=== PATIENT | female | born 1940 | race Caucasian/White ===

== ENCOUNTER 2024-10-27 15:35 | Inpatient (IN) | payer OTHER, SELFPAY ==
[2024-10-27] VITALS (16 sets, daily range): BP systolic 150–198; BP diastolic 84–115; BMI 27.2
--- NOTE | 2024-10-27 11:49 | ED.GENMED ---
History of Present Illness
General
Chief Complaint: Weakness
Source: patient
Exam Limitations: none
Time Seen by Provider: 10/27/24 11:32
Nursing documentation reviewed up to this point in time: agreed with
History of Present Illness
History of Present Illness:
Very spry active 84 yo noted right arm weakness, ataxic gait, mild R perioral numbness 4 p.m yesterday after finishing her workout class. No PMHX, takes no meds.
Past History
Past History
ED Past Medical History: None
ED Past Surgical History: None
Social History
Tobacco: Non-smoker
Personal:
Living: with family
Review of Systems
Review of Systems
Allergies reviewed?: Yes
All Other Systems: ROS reviewed and negative except as documented in HPI and ROS
Constitutional: Denies fever or fatigue
Respiratory: Denies trouble breathing
Cardiac: Denies chest pain
ABD/GI: Denies abdominal pain, nausea, vomiting or diarrhea
: Denies dysuria, frequency or difficulty voiding
Musculoskeletal: Reports no symptoms
Skin: Reports no symptoms
Neurological: Reports other (mild right perioral numbness, right UE feels 'a little numb and heavy,' 'I can't walk straight')
Phy Exam
Physical Exam
Physical Exam:
GENERAL: No acute distress. A&Ox3.
CONSTITUTIONAL: Afebrile.
EYES: clear, conjunctivae normal
ENMT: moist mucus membranes, Pharynx nl
RESPIRATORY: Regular respirations, nonlabored, lungs clear.
CARDIOVASCULAR: Regular rate and rhythm, no murmurs, no rubs.
GI: Soft, nontender, normal BS
MUSCULOSKELETAL: Moves with ease. Well perfused.
SKIN: Warm, dry, pink
PSYCH: Normal mood and affect. Well kept, interactive and appropriate
NEUROLOGIC: Awake, alert and oriented. Strength equal throughout. Subjective right arm feels 'a little weak /heavy.' Mild ataxia w finger to nose, ataxic gait. Right-sided perioral numbness. no facial asymmetry
Scores
NIH Stroke Score
Level of Consciousness: 0 - Alert
LOC Questions: 0-Answers both correctly
LOC Commands: 0-Performs both correctly
Best Horizontal Gaze: 0-Normal
Visual Carson: 0=Normal, no visual loss
Facial Palsy: 1=Minor paralysis
Motor - Right Arm: 0=No drift 10 seconds
Motor - Left Arm: 0=No drift 10 seconds
Motor - Right Le-No drift 5 seconds
Motor - Left Le-No drift 5 seconds
Limb Ataxia: 1-Present in one limb (finger to nose right hand mildly ataxic)
Sensation: 1-Mild loss (right side upper and lower lip, right hand)
Best Language: 0-No aphasia
Dysarthria: 0-Normal
Extinction and Inattention: 0-No abnormality
NIH Total Score:: 3
Course
Orders/Labs/Results
Orders:
Orders
10/27/24 11:43
CT Head W/o Iv Contrast Urgent
Comment:
Reason For Exam: imbalance, right arm weak, right lip numb
10/27/24 11:45
CT Head & Neck Angio W/wo IV Urgent
Comment:
Reason For Exam: R side weakness
10/27/24 11:47
CT Brain Perfusion Urgent
Comment:
Reason For Exam: R side weakness
10/27/24 11:50
Cardiovascular Evaluation Urgent
Comment: ADD ON
Complete Blood Count/With Diff Urgent
Comprehensive Metabolic Panel Urgent
Glycohemoglobin (HgbA1c) Urgent
TSH Reflex To Free T4 Urgent
10/27/24 11:58
NEUROLOGY CONSULT Urgent
Consulting Provider: Justin Carlos
Was physician already notified: Yes
Reason for consult: poss CVA
10/27/24 12:04
PTT Urgent
Prothrombin Time Urgent
10/27/24 12:52
Add On- LAB Routine
Tests Added?: lipid panel, hgb A1C
10/27/24 13:01
MR Brain Without Contrast Routine
Comment:
Reason For Exam: right sided ataxia
Recent pill cam endoscopy?: No
10/27/24 13:12
Labetalol HCl [Trandate] 10 mg IV NOW STA
10/27/24 15:00
Aspirin Low Dose EC [Aspir Low (Enteric Coated)] 81 mg PO DAILY
Clopidogrel Bisulfate [Plavix] 75 mg PO DAILY
10/27/24 15:09
Admit/Transfer Patient As Directed
Co-Sign Provider:
Level of Care: Observation services
Assign to:: Telemetry
Physician / Group: Hospitalist
Diagnosis: CVA/TIA
Reason for Telemetry: CVA/TIA
Date to Stop Telemetry: 10/30/24
Time to Stop Telemetry: 11:00
Reason for Hospitalization: Right UE weakness
Expected length of stay greater than two midnights?: Yes
ELOS- Estimated Length of Stay in days: 2
I certify the patient meets the requirements for IP care: Yes
PRN Pain Medication Management As Directed
May give lesser potent ordered pain med per pt: Yes
preference::
Protocol:: Medication orders for pain may be administered in a
manner that supports deferring to patient preference
when the pt is:
- Requesting an ordered lesser potent pain medication.
Least to most potent pain medications are defined
as: acetaminophen < NSAID < tramadol < opioids
(morphine, oxycodone, hydromorphone).
- Requesting a lesser dose of the same medication IF
ORDERED.
- Requesting a less intrusive route of administration
if both routes are prescribed by the provider (PO <
IV).
08/19/25 15:12
Code Status As Directed
Resuscitation Status: Do not resuscitate
Reached after discussion with pt or family/Healthcare POA: Yes
10/27/24 15:13
DNR Bracelet Application ONCE
10/27/24 17:56
Acetaminophen [Tylenol/Feverall] 650 mg RECTAL Q4HPRN PRN
Acetaminophen [Tylenol] 650 mg PO Q4HPRN PRN
10/27/24 17:56
Case Management Consult ONCE
Case Management Consult: Discharge Planning
Comment: stroke/tia
DIETARY IP CONSULT Routine
Reason for Consult: stroke/TIA
NEUROLOGY CONSULT Urgent
Consulting Provider: Justin Carlos
Was physician already notified: Yes
Proposal Editor Urgent
Activity As Directed
Activity Level: As Tolerated
NIH Stroke Scale As Directed
Directions: Per protocol
Comment: every shift and with any change in condition or mental status
Neurological Checks As Directed
Frequency: q4h
Additional Instructions:: q4h x 24h upon admission to the floor, then qshift & with any change in condition
and mental status
Patient Education As Directed
Type: Stroke education packet
Comment: provide to patient and family
Pneumatic Compression Sleeves As Directed
Type: Knee high
Swallow Screening CVA/TIA ONLY As Directed
Comment: NPO until swallowing screening completed
If patient FAILS swallow screening:: NPO, Speech Therapy consult, Aspiration Precautions
If patient PASSES swallow screening, diet:: Cholesterol Lowering
Above diet order entered?: Yes- passed screening
Vital Signs As Directed
Frequency: Per unit guidelines
Ot Eval And Treat Routine
Pt Eval And Treat Routine
Activity Level: Out of Bed-Early Mobility
Speech Therapy Eval & Treat Routine
DX Deep Vein Thrombosis Video Routine
10/27/24 18:00
Atorvastatin [Lipitor] 40 mg PO QPM
10/28/24 06:00
Cardiovascular Evaluation IN AM
10/30/24 11:00
DC Protocol for Telemetry ONCE
Abnormal Lab Results
10/27/24 10/27/24
11:50 12:04
MCHC 32.8 L g/dL
(33.0-37.0)
Absolute Monos (auto) 0.7 H 10^3/uL
(0.1-0.6)
APTT 23.1 L Sec
(23.4-35.0)
Chloride 108 H mmol/L
(98-107)
BUN 25 H mg/dl
(7-17)
Creatinine 1.1 H mg/dL
(0.6-1.0)
Glucose 107 H mg/dl
(70-99)
Hemoglobin A1c 5.7 H %
(4.0-5.6)
Calcium 10.9 H mg/dl
(8.4-10.2)
Triglycerides 215 H mg/dl
(10-149)
Total Cholesterol 213 H mg/dl
(50-199)
VLDL Cholesterol, Calc 43 H mg/dl
(0-30)
10/27/24 11:50
10/27/24 11:50
Vital Signs
Initial and Last Documented VS:
Initial Vital Signs
Temp Pulse Resp BP Pulse Ox
99.2 F 88 18 169/111 98
10/27/24 11:16 10/27/24 11:16 10/27/24 11:16 10/27/24 11:16 10/27/24 11:16
Last Documented Vital Signs
Temp Pulse Resp BP Pulse Ox
97.8 F 77 18 169/97 96
10/27/24 19:46 10/27/24 19:46 10/27/24 19:46 10/27/24 19:46 10/27/24 19:46
MDM/Problems Addressed
MDM/Problems Addressed:
Very spry active 84 yo noted right arm weakness, ataxic gait, mild R perioral numbness 4 p.m yesterday after finishing her workout class. No PMHX, takes no meds.
Case discussed with Dr. Elliott
Stroke alert not called due to onset of symptoms. Immediately sent to CT scan. Labs pending.
11:[address] Carlos consulted.
12:30 Dr. Carlos in
1:00 p.m.
Text from Radiologist Dr. Green: Small focus of subtle diminished attenuation involving the posterior limb of left internal capsule. Nonspecific. Possible age indeterminate ischemic change/infarct.
No other significant acute intracranial abnormality noted.
No acute intracranial hemorrhage.
1:[address] Carlos request lowering patient's blood pressure by about 20%. Recent blood pressure 188/104 with a heart rate of 112. Labetalol 10 mg IV ordered. States it is probably stroke although the possibility of hypertensive encephalopathy is still
there. She needs to stay, she needs occupational therapy with her hand mobility reduced
Hospitalist notified of admission
*Pulse Oximetry
SaO2: 98
Oxygen Mode of Delivery: Room air
Patient hypoxic: not evaluated
*Critical Care Note
Total Time (30-74mins, 75-104mins- exclusive of procedures): Not Applicable
ED Attending Note
-
Portions of this chart may have been created with voice recognition software.� Occasional wrong word or��sound alike� substitutions may have occurred due to the inherent limitations of voice recognition software.
Discharge Plan
Departure
Patient Disposition: Admit
Date of Disposition: 10/27/24
Time of Disposition: 13:06
Admit to: Med/Surg
Presentation/result/management discussed w/ accepting MD/DO: Hospitalist
Condition: Fair
Discharge Problem:
Acute cerebrovascular accident (CVA)
Interventions
Interventions:
*Risk Screen - Suicide Last Done: 10/27/24 11:16
*General Assessment Last Done: 10/27/24 11:16
*Neglect/Abuse Screening Last Done: 10/27/24 11:16
*ED- Fall Risk Assessment Last Done: 10/27/24 11:16
*ED COVID-19 Vaccine History Last Done: 10/27/24 11:16
*Nursing Disposition Last Done: 10/27/24 17:54
ED- Cardiac Assessment Last Done: 10/27/24 12:12
ED- Neurological Assessment Last Done: 10/27/24 15:00
ED- Pulmonary Assessment Last Done: 10/27/24 12:12
Discharge Date and Time
Discharge Date/Time: 10/27/24 17:54
[2024-10-27 12:01] LABS: Hematocrit 46.9 % (37.0-47.0); Hemoglobin 15.4 g/dL (12.0-16.0); Mean Corp Hgb Conc. 32.8 g/dL (33.0-37.0); Mean Corpuscular Volume 90.4 fL (81.0-99.0); Nucleated Red Blood Cells % 0 %; Platelet Count 281 10^3/uL (130-400); Red Cell Dist. Width 13.5 % (11.5-14.5)
[2024-10-27 12:14] LABS: ALT (SGPT) 20 U/L (0-35); AST (SGOT) 25 U/L (14-36); Albumin 4.3 g/dl (3.5-5.0); Alkaline Phosphatase 69 U/L (38-126); Blood Urea Nitrogen 25 mg/dl (7-17); Calcium 10.9 mg/dl (8.4-10.2); Carbon Dioxide 26 mmol/L (22-30); Chloride 108 mmol/L (98-107); Glucose 107 mg/dl (70-99); Potassium 4.5 mmol/L (3.5-5.1); Sodium 140 mmol/L (135-145); Total Protein 7.1 g/dl (6.3-8.2); eGFR 49.24
[2024-10-27 12:23] LABS: INR 0.88; PT 12.2 Sec (11.4-14.6)
--- NOTE | 2024-10-27 12:34 | CON.NEURO ---
Addendum entered and electronically signed by Justin Carlos MD 10/27/24 15:18:
Studies reviewed.
I have personally examined the patient. I reviewed and agree with the LOAN INSPECTOR's Note.
My addenda:
Awake, alert, interactive. No acute distress.
Speech intact.
Follows 2-step requests w/o difficulty. No tremor.
Extra-ocular movements grossly intact.
Facial movements full and symmetric. Hearing intact to normal conversational volume.
Normal UE movements bilaterally.
Neck: full ROM.
Chest: no dyspnea
Heart: no JVD
Ext: (-) Clubbing, (-) Cyanosis, (-) Edema
IMPRESSIONS/RECOMMENDATIONS:
Abrupt onset of right sided facial sensation change and sense of ataxia involving the right hand
Differential diagnosis includes hypertensive encephalopathy, TIA/stroke
Provide combination of aspirin and clopidogrel for 21 days then aspirin alone
Check lipid profile, start atorvastatin because LDL is greater than 70
Check MRI of brain to help confirm or refute presence of acute ischemic stroke
Rehabilitation evaluations requiring hospitalization
DVT prophylaxis
Medical educational materials to be provided
Would reduce patient's blood pressure by 20% and not lower than that due to possible stroke requiring elevated blood pressures until normal cerebral autoregulation could be reestablished, if there is presence of a stroke
D/W patient / family / nursing
All questions answered.
Will continue to follow patient.
Original Note:
Documented by User: Renate Montero NP 10/27/24 14:50
Neuro Assessment/Plan
Assessment
Patient is an 84 year old female presented to [facility] on 10/26/2024 for evaluation of ataxia and right sided weakness.
Brain Perfusion: No imaging findings to suggest hypoperfusion or acute infarct.
Head CT:
Small focus of subtle diminished attenuation involving the posterior limb of left internal capsule. Nonspecific. Possible age indeterminate ischemic change/infarct.
No other significant acute intracranial abnormality noted.
No acute intracranial hemorrhage.
Head and neck CTA:
Minimal right and mild left calcified and noncalcified plaque of the carotid bulb and proximal ICA, without hemodynamically significant stenosis. No dissection or occlusion.
Mild calcified plaque of the cavernous ICA, bilaterally, without hemodynamically significant stenosis. No occlusion.
No [place] of [place] region aneurysm.
Moderate to high-grade focal stenosis involving the right posterior cerebral artery P2 segment. No other cerebral artery hemodynamically significant stenosis, and no occlusion.
Nonspecific bilateral thyroid nodularity, the largest nodule on the right measuring 1.6 cm. Consider nonemergent follow-up ultrasound.
Labs: Hgb A1C 5.7, LDL 123
Plan
Impressions: abrupt onset of right sided ataxia and sensory changes most likely due to stroke vs hypertensive encephalopathy
-check MRI brain without contrast to evaluate for stroke
-BP goal is normotension.
-start ASA 81mg and clopidogrel 75mg daily for 21 days followed by monotherapy with aspirin
-goal is normoglycemia
-current LDL 123 with goal <70 start atorvastatin 40 mg nightly
-PT/OT/ST evaluations
-DVT prophylaxis
-continue neurochecks and NIHSS per unit guidelines
All questions encouraged and answered, plan of care discussed with Dr. Carlos, patient and family
Consultation
Order
Date of Consultation: 10/27/24
Requesting Provider: hospitalist
Reason for Consult: right sided sensation changes and ataxia
Subjective/Objective
Subjective Data
Date of Service: October 27, 2024
Patient is an 84 year old female presented to [facility] on 10/26/2024 for evaluation of ataxia and right sided weakness. Attended her fitness class yesterday from 1:30-2:30 heard a 'pop' and when she got home around 4pm she noted right-sided weakness,
ataxic gait. Symptoms persisted and unchanged which prompted her ER visit. This morning awoke at 7am and noticed mild R perioral numbness. Denies headache or dizziness, denies issues with speech or swallowing, denies chest pain or SOB. Denies issues
with bowel/bladder. Head CT and brain perfusion unrevealing. Head and neck CTA without hemodynamically significant stenosis or LVO. BP 198/115. NIHSS 3 for right sided ataxia and sensation changes, not a TNK candidate due to onset of symptoms and
low score.
Objective Data
Vital Signs
Temp Pulse Resp BP Pulse Ox
99.2 F 96 22 169/111 96
10/27/24 11:16 10/27/24 12:31 10/27/24 12:31 10/27/24 11:16 10/27/24 12:31
Lab Results
10/27/24 11:50
10/27/24 11:50
PT 12.2 Sec (11.4-14.6) 10/27/24 12:04
INR 0.88 10/27/24 12:04
Sodium 140 mmol/L (135-145) 10/27/24 11:50
Potassium 4.5 mmol/L (3.5-5.1) 10/27/24 11:50
BUN 25 mg/dl (7-17) H 10/27/24 11:50
Glucose 107 mg/dl (70-99) H 10/27/24 11:50
Calcium 10.9 mg/dl (8.4-10.2) H 10/27/24 11:50
Patient Allergies
Penicillins Allergy (Verified 10/27/24 11:15)
Hives
Sulfa (Sulfonamide Antibiotics) Allergy (Verified 10/27/24 11:15)
Hives
CVA Assessment
Onset of Stroke Symptoms
Onset of symptoms known: Yes
Date of onset of symptoms: 10/26/24
Time of onset of symptoms: 16:00
Time pt last seen normal is known: Yes
Date last time pt seen normal: 10/26/24
Time last time pt seen normal: 16:00
NIH Stroke Score
Level of Consciousness: 0 - Alert
LOC Questions: 0-Answers both correctly
LOC Commands: 0-Performs both correctly
Best Horizontal Gaze: 0-Normal
Visual Carson: 0=Normal, no visual loss
Facial Palsy: 0=Normal, symmetrical
Motor - Right Arm: 0=No drift 10 seconds
Motor - Left Arm: 0=No drift 10 seconds
Motor - Right Le-No drift 5 seconds
Motor - Left Le-No drift 5 seconds
Limb Ataxia: 2-Present in two limbs (RUE/RLE)
Sensation: 1-Mild loss
Best Language: 0-No aphasia
Dysarthria: 0-Normal
Extinction and Inattention: 0-No abnormality
NIH Total Score:: 3
Tenecteplase Contraindications
Inclusion and Exclusion criteria reviewed: Yes
IAT Contraindications: >6 hrs from onset/last seen normal and NIHSS < 6
Physical Exam
-
General: No Apparent Distress and Comfortable
Eyes: Round OU
HEENT: Normocephalic, Atraumatic and Anicteric
Neck: Full Range of Motion
Respiratory: No Dyspnea
Cardiac: No JVD
GI: Non-distended
Skin: Unremarkable
Extremities: No Clubbing, No Cyanosis and No Edema
Psych: Unremarkable
Extended Neurological Exam
Mood & Affect: Mood Unremarkable
Attention Span & Concentration: Awake, Alert, Interactive and No Difficulty with 2 Step Request
Memory: Unremarkable
Tremor: Hand Tremor Absent and Head Tremor Absent
Speech: Quality Unremarkable, Quantity Unremarkable and Rate of Production Unremarkable
Cranial Nerve II: Left Eye: Visual Carson Intact
Cranial Nerve II: Right Eye: Visual Carson Intact
Cranial Nerves III, IV, : Extraocular Movement: Extraocular Movement Full in all Directions
Cranial Nerve VII: Facial Symmetry: Normal Facial Symmetry
Cranial Nerve VIII: Hearing: Unremarkable Hearing to Normal Conversational Volume
Muscle Strength, Overall: Full Throughout
Pronator Drift: No Drift in Upper Extremities and No Drift in Lower Extremities
Touch Sensation: Double Simultaneous Stimulation Unremarkable
Coordination: Reaches for Objects without Difficulty, KANDY Satellites around Left, [id number] movement abnormal and Other (Ataxia to RUE/RLE)
Data Reviewed
-
CT-Perfusion: Report Reviewed and Image Reviewed
CT Head: Report Reviewed and Image Reviewed
Labs: Report Reviewed
Reviewed with: Physician and Nurse
Old Records: Summarized
Past History
Past History
ED Past Medical History: None
ED Past Surgical History: None
Family/Social History
Tobacco: Non-smoker
Personal:
Living: with family

Documented by User: Justin Carlos MD 10/27/24 15:08
CVA Assessment
NIH Stroke Score
NIH Total Score:: 3
[2024-10-27 12:36] LABS: APTT 23.1 Sec (23.4-35.0)
[2024-10-27] MEDS: TRANDATE 10 MG IV (13:24)
[2024-10-27 13:41] LABS: HDL Cholesterol 47 mg/dl; LDL Cholesterol, Calculated 123 mg/dl; Very Low Density Lipoprotein 43 mg/dl (0-30)
[2024-10-27 14:15] LABS: Glycohemoglobin (HgbA1c) 5.7 % (4.0-5.6)
[2024-10-27] MEDS: PLAVIX 75 MG PO (15:14)
[2024-10-27] MEDS: ASPIR LOW (ENTERIC COATED) 81 MG PO (15:14)
--- NOTE | 2024-10-27 15:18 | HPS.HSE ---
Family Physician
<Cyn Aden MD, Resident - Last Filed: 10/27/24 18:07>
-
Family Physician: Maribell Castillo
Chief Complaint
<Cyn Aden MD, Resident - Last Filed: 10/27/24 18:07>
-
U/L R Upper arm weakness and facial numbness -
History of Present Illness
An 84 year old woman with no significant medical history presenting to the [facility] ED today on account of sudden onset upper arm weakness, associated right facial weakness and feeling unstable which progressively lessened and is currently without any
symptom at. This started at 4pm yesterday after finishing her workout.
She had no history of recent ill health, medications, sick contact, or trauma
Medical History
<Cyn Aden MD, Resident - Last Filed: 10/27/24 18:07>
Past Medical History
Past Medical History: Reports None
Past Surgical History: Reports None
Social History
Unable to obtain full social history at this time due to: Dementia
Tobacco: Non-smoker
Alcohol: None
Drug: None
Personal:
Living: With Family
Family History
Family History: Not pertinent
Allergies / Home Medications
Allergies reflects when Allergies were last updated in [employer].
Home Medications with original date entered in [employer]
Allergy/Medication List:
None
<Dash Paige MD, Resident - Last Filed: 10/27/24 18:05>
Allergies / Home Medications
Allergy/Medication List:
Allergies
Allergy/AdvReac Type Severity Reaction Status Date / Time
Penicillins Allergy Hives Verified 10/27/24 11:15
Sulfa (Sulfonamide Allergy Hives Verified 10/27/24 11:15
Antibiotics)
Home Medications
Boswellia amy extract 307 mg tablet 307 mg PO BID Supplement 10/27/24
Curcumin Capsules 2 cap PO BID Supplement 10/27/24
alpha lipoic acid 100 mg capsule 100 mg PO DAILY Supplement 10/27/24
biotin 10,000 mcg chewable tablet (Hair, Skin and Nails (biotin)) 10,000 mcg PO DAILY Supplement 10/27/24
chondroitin 80 mg-collagen 400 mg-hyaluronic 40 mg-amino acid capsule 1 cap PO DAILY Supplement 10/27/24
coQ10 (ubiquinol) 100 mg capsule 100 mg PO DAILY Supplement 10/27/24
dorzolamide 22.3 mg-timolol 6.8 mg/mL eye drops 1 drp BOTH EYES BID Eye Condition 10/27/24
garlic 100 mg tablet 100 mg PO DAILY Supplement 10/27/24
latanoprost 0.005 % eye drops 1 drp BOTH EYES HS Eye Condition 10/27/24
magnesium glycinate 100 mg (as glycinate) tablet 100 mg PO BID Supplement 10/27/24
therapeutic multivitamin 1 tab PO DAILY Supplement 10/27/24
vit A 1,500 mcg-C 60 mg-E 20 mg-zinc ox-copper [id number]-flra tablet (Lutein Plus With Zeaxanthin) 1 tab PO DAILY Supplement 10/27/24
Review of Systems
<Cyn Aden MD, Resident - Last Filed: 10/27/24 18:07>
-
History Source: Patient
A 12 point ROS was completed and negative except as noted: Yes
Physical Exam
<Cyn Aden MD, Resident - Last Filed: 10/27/24 18:07>
Vital Signs
Vital Signs
Temp Pulse Resp BP Pulse Ox
99.2 F 85 18 150/89 96
10/27/24 11:16 10/27/24 14:30 10/27/24 14:30 10/27/24 14:30 10/27/24 14:30
Physical Exam
General: Well Developed and No Apparent Distress
HEENT: NormoCephalic and Moist mucous membranes
Respiratory: Clear
Cardiac: S1/S2 and Regular Rhythm
GI: Soft, Non Tender and Non Distended
Musculoskeletal: Other
Skin: Warm and Dry
Neuro: Awake, Alert, Oriented, AO x 3, Nonfocal/grossly intact, No Sensory Deficits and Other (Facial muscles are without pathology. Sensation and motor function is equal bilaterally, globally in upper and lower extremities. Limb ataxia not present,
passed finger to nose test)
Psych: Calm and Intact Judgment/Insight
Laboratory Results
<Cyn Aden MD, Resident - Last Filed: 10/27/24 18:07>
-
10/27/24 11:50
10/27/24 11:50
Laboratory Results
PT 12.2 Sec (11.4-14.6) 10/27/24 12:04
INR 0.88 10/27/24 12:04
APTT 23.1 Sec (23.4-35.0) L 10/27/24 12:04
Total Bilirubin 1.0 mg/dl (0.2-1.3) 10/27/24 11:50
AST 25 U/L (14-36) 10/27/24 11:50
ALT 20 U/L (0-35) 10/27/24 11:50
Alkaline Phosphatase 69 U/L (38-126) 10/27/24 11:50
Data Reviewed
<Cyn Aden MD, Resident - Last Filed: 10/27/24 18:07>
-
CT Scan: Report Reviewed by me, Discussed with Physician and Discussed with Patient
Lab Data: Discussed with Physician, Discussed with Patient and Discussed with Family
Impression/Plan
<Cyn Aden MD, Resident - Last Filed: 10/27/24 18:07>
-
IMPRESSION:
While in the ED, She had mild right facial palsy, mild limb ataxia (right hand mildly ataxic to finger to nose test) and Mild loss of sensation on the upper right limb. NIH Stroke score of 3
She received IV Labetalol 10mg stat
-Investigations done (cbc, cmp, lipid panel) BUN/Cr- 25/1.1, TGA- 215, VLDL- 43, TC- 213, Ca -10.9
-Head CT W/O Contrast- 10/27/2024
Small focus of subtle diminished attenuation involving the posterior limb of left internal capsule. Nonspecific. Possible age indeterminate ischemic change/infarct
No acute intracranial hemorrhage. No extra-axial collection.
-Brain CT Perfusion 10/27/2024
No imaging findings to suggest hypoperfusion or acute infarct.
Mild calcified plaque of the cavernous ICA, bilaterally, without hemodynamically significant stenosis.
Moderate to high-grade focal stenosis involving the right posterior cerebral artery P2 segment. No other cerebral artery hemodynamically significant stenosis, and no occlusion.
-Head CTA 10/27/2024
Minimal right and mild left calcified and noncalcified plaque of the carotid bulb and proximal ICA, without hemodynamically significant stenosis.
# Acute Cerebrovascular Accident
Likely Hypertensive encephalopathy
-IV Labetalol 10mg [id number] (1st dose received)
-Goal Bp to be reduced by 20% to allow permissive hypertension
-Admit to telemetry
-Neurology managing
-Further neuro-evaluation with MRI
-Further work-up for etiology determination
Echo, EKG
-Aspirin 81mg, Clopidogrel 81
-High intensity statin
-PT/OT Eval
#Dyslipidemia
Rosuvastatin 40mg
#ROSEANNA
-Baseline unkown
-Likely hypovolemic
-BUN/Cr 25/1.1
-IVF @maintenance NS @75ml/hr
-DVT PPX- SCD
-CODE STATUS- DNR
[2024-10-27] MEDS: NSS 1000 IV (16:30)
--- NOTE | 2024-10-27 16:44 | CM ---
CM reviewed chart and met with pt and bedside in ED. They live in 2 story home, 2 GUS, first floor half BA, full flight to second floor BR/full BA. Independent in ADLs, personal care and ambulation at baseline. No assistive device.
CORLEY reviewed and signed.
No hx VN/SNF
PCP: Maribell Castillo
Pharmacy: [facility]
Anticipate discharge home, CM will continue to follow for any discharge planning needs.
[2024-10-27] MEDS: LIPITOR 40 MG PO (18:18)
[2024-10-28] VITALS (8 sets, daily range): BP systolic 115–177; BP diastolic 80–105; PULSE 78
--- NOTE | 2024-10-28 02:47 | DOWNTIME ---
There was a [employer] Client Transfer Station Operator Downtime on 10/28/2024 from 0100 to 10/28/2024 at 0235. Downtime documentation of patient's care, including medication administrations, has been reconciled in the electronic record per guidelines. Refer to the
patient's paper chart under the miscellaneous tab to see printed paper medication records and downtime forms.
[2024-10-28] MEDS: NSS 1000 IV (06:53)
[2024-10-28 07:34] LABS: Hematocrit 43.1 % (37.0-47.0); Hemoglobin 14.0 g/dL (12.0-16.0); Mean Corp Hgb Conc. 32.5 g/dL (33.0-37.0); Mean Corpuscular Volume 91.3 fL (81.0-99.0); Platelet Count 275 10^3/uL (130-400); Red Cell Dist. Width 13.8 % (11.5-14.5)
[2024-10-28 08:10] LABS: Blood Urea Nitrogen 18 mg/dl (7-17); Calcium 9.9 mg/dl (8.4-10.2); Carbon Dioxide 27 mmol/L (22-30); Chloride 109 mmol/L (98-107); Estimated Creatinine Clearance 35 ml/min; Glucose 86 mg/dl (70-99); HDL Cholesterol 39 mg/dl; LDL Cholesterol, Calculated 99 mg/dl; Potassium 4.2 mmol/L (3.5-5.1); Sodium 141 mmol/L (135-145); Very Low Density Lipoprotein 36 mg/dl (0-30); eGFR 49.24
--- NOTE | 2024-10-28 08:49 | W.PN.HOSP.TC ---
Today's Communication/Plan
-
Investigations concerning for A CVA
Will need Bp management, 2/2 prevention
Assessment / Plan
Assessment / Plan
# Acute Cerebrovascular Accident
Likely Hypertensive encephalopathy
-IV Labetalol 10mg [id number]
-Goal Bp to be reduced by 20% to allow permissive hypertension
-MRI (10/27/2024)
There is a 1 cm focus of restricted diffusion is situated in the peripheral left thalamus, immediately adjacent to the posterior limb of the internal capsule, which corresponds to the small focus of subtle diminished signal intensity on CT
examination from the previous day. Findings consistent with acute infarct. Associated mild edema. No associated mass effect.
-Further work-up for etiology determination- Echo
-Aspirin 81mg, Clopidogrel 81 for 21 days
-High intensity statin
-PT/OT Eval
Recommends acute rehab and Driving restrictions
#Essential hypertension
Amlodipine 5mg
#Dyslipidemia
Atorvastatin 40mg
#ROSEANNA
-Likely hypovolemic, had IVF @maintenance NS @75ml/hr
-BUN/Cr 18/1.1 improving (04/04.)
Anticipated Discharge: Within 24 hours
Subjective/Interval History
-
Date of Service: October 28, 2024
Patient seen. An 84 year old female who presented yesterday with complains of sudden onset weakness on the right side which has since resolved
C/O Tingling in the right upper ext
No other complains
Objective Data
-
Labs:
Laboratory Results
10/28/24
06:40
WBC 8.9
Hgb 14.0
Hct 43.1
Plt Count 275
Sodium 141
Potassium 4.2
Chloride 109 H
Carbon Dioxide 27
BUN 18 H
Creatinine 1.1 H
Glucose 86
Calcium 9.9
Vital Signs:
Vital Signs
Temp Pulse Resp BP Pulse Ox
98.3 F 83 18 158/94 98
10/28/24 07:48 10/28/24 07:48 10/28/24 07:48 10/28/24 07:48 10/28/24 07:48
Review of Systems
-
History Source: Patient
Constitutional: Reports No Symptoms
EENT: Reports No Symptoms Reported
Respiratory: Reports No Symptoms
Cardiac: Reports No Symptoms
Abdomen/GI: Reports No Symptoms
Neuro: Reports No Symptoms
Physical Exam
-
General: Well Developed
HEENT: Normocephalic
Respiratory: Clear to Auscultation
Cardiac: Regular Rhythm and S1/S2
GI: Soft and Nontender
Musculoskeletal: No Clubbing, No Cyanosis and No Edema
Skin: Warm and Dry
Neuro: Awake, Alert, Oriented, AO x 3, No Motor Deficits, Nonfocal/Grossly Intact and No Sensory Deficits; Negative Tremors, Sedated, Slurred Speech or Facial Droop
Psych: Calm
Data Reviewed
-
MRI: Report Reviewed by me, Discussed with Physician and Discussed with Patient
Labs: Labs Reviewed by me, Discussed with Physician and Discussed with Patient
[2024-10-28] MEDS: PLAVIX 75 MG PO (09:08)
[2024-10-28] MEDS: ASPIR LOW (ENTERIC COATED) 81 MG PO (09:08)
[2024-10-28] MEDS: NORVASC 5 MG PO (12:26)
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
[2024-10-28] MEDS: LIPITOR 40 MG PO (16:37)
[2024-10-28] MEDS: TRANDATE 10 MG IV (16:38)
[2024-10-29] VITALS (7 sets, daily range): BP systolic 141–173; BP diastolic 74–90; PULSE 77; O2SAT 97
--- NOTE | 2024-10-29 01:51 | PTCARENOTE ---
Assumed care of pt from previous nurse. Pt denies pain. Pt NIH 2, no change from previous shift. Pt is on tele running nsr. pt call diana is within reach, pt rings [email or web address] cont to monitor.
[2024-10-29] MEDS: NSS 1000 IV (05:34)
[2024-10-29 07:26] LABS: Hematocrit 44.6 % (37.0-47.0); Hemoglobin 14.7 g/dL (12.0-16.0); Mean Corp Hgb Conc. 33.0 g/dL (33.0-37.0); Mean Corpuscular Volume 91.0 fL (81.0-99.0); Platelet Count 289 10^3/uL (130-400); Red Cell Dist. Width 13.7 % (11.5-14.5)
--- NOTE | 2024-10-29 07:39 | W.PN.HOSP.TC ---
Today's Communication/Plan
-
Investigations benign
To ensure medication complaince
Assessment / Plan
Assessment / Plan
# Acute Cerebrovascular Accident
-IV Labetalol 10mg [id number] for SB > 170, last dose, yesterday at 4pm for bp 172/80
Amlodipin 5mg
DAPT/ Statin
-MRI (10/27/2024)
There is a 1 cm focus of restricted diffusion is situated in the peripheral left thalamus, immediately adjacent to the posterior limb of the internal capsule, which corresponds to the small focus of subtle diminished signal intensity on CT
examination from the previous day. Findings consistent with acute infarct. Associated mild edema. No associated mass effect.
-Echo- Normal EF 55%
-Aspirin 81mg, Clopidogrel 81 for 21 days
-High intensity statin
-For possible discharge home to fu on out patient basis
-Ct PT/OT
#Essential hypertension
-Bp still elevated after Amlodipine 5mg (159/90), Increase to 10 mg (another 5 mg now)
#Dyslipidemia
Atorvastatin 40mg
#ROSEANNA
-Likely hypovolemic, had IVF @maintenance NS @75ml/hr
-BUN/Cr 16/1.0 resolved (25/1.1)
Anticipated Discharge: Within 24 hours
Subjective/Interval History
-
Date of Service: October 29, 2024
PATIENT SEEN C/O tingling sensation in the RUL and poor coordination
Objective Data
-
Labs:
Laboratory Results
10/29/24
06:43
WBC 8.1
Hgb 14.7
Hct 44.6
Plt Count 289
Sodium Pending
Potassium Pending
Chloride Pending
Carbon Dioxide Pending
BUN Pending
Creatinine Pending
Glucose Pending
Calcium Pending
Vital Signs:
Vital Signs
Temp Pulse Resp BP Pulse Ox
97.7 F 70 18 141/82 97
10/29/24 03:05 10/29/24 03:05 10/29/24 03:05 10/29/24 03:05 10/29/24 03:05
I&O
10/28/24 10/29/24 10/30/24
06:59 06:59 06:59
Intake Total 960 / 960
Balance 960 / 960
Review of Systems
-
History Source: Patient
Constitutional: Reports No Symptoms
EENT: Reports No Symptoms Reported
Respiratory: Reports No Symptoms
Cardiac: Reports No Symptoms
Abdomen/GI: Reports No Symptoms
Physical Exam
-
General: Well Developed
HEENT: Normocephalic
Respiratory: Clear to Auscultation
Cardiac: Regular Rhythm and S1/S2
GI: Soft and Nontender
Musculoskeletal: No Clubbing, No Cyanosis and No Edema
Skin: Warm and Dry
Neuro: Awake, Alert, Oriented, AO x 3, No Motor Deficits, Nonfocal/Grossly Intact, No Sensory Deficits and Other; Negative Tremors, Sedated, Slurred Speech or Facial Droop
Psych: Calm
Data Reviewed
-
CT Scan: Report Reviewed by me, Discussed with Physician and Discussed with Patient
MRI: Report Reviewed by me, Discussed with Physician and Discussed with Patient
Labs: Labs Reviewed by me, Discussed with Physician and Discussed with Patient
[2024-10-29 08:09] LABS: Blood Urea Nitrogen 16 mg/dl (7-17); Calcium 10.1 mg/dl (8.4-10.2); Carbon Dioxide 23 mmol/L (22-30); Chloride 111 mmol/L (98-107); Estimated Creatinine Clearance 39 ml/min; Glucose 89 mg/dl (70-99); Potassium 4.1 mmol/L (3.5-5.1); Sodium 140 mmol/L (135-145); eGFR 55.21
[2024-10-29] MEDS: NORVASC 5 MG PO ×2 (08:39→12:08)
[2024-10-29] MEDS: ASPIR LOW (ENTERIC COATED) 81 MG PO (08:39)
[2024-10-29] MEDS: PLAVIX 75 MG PO (08:39)
--- NOTE | 2024-10-29 11:27 | W.PN.HOSP.TC ---
Today's Communication/Plan
-
Diagnosis and need for medication discussed
Assessment / Plan
Assessment / Plan
# Acute Cerebrovascular Accident
-IV Labetalol 10mg invt0sd for SB > 170, last dose, yesterday at 4pm for bp 172/80
Amlodipin 5mg
DAPT/ Statin
-MRI (10/27/2024)
There is a 1 cm focus of restricted diffusion is situated in the peripheral left thalamus, immediately adjacent to the posterior limb of the internal capsule, which corresponds to the small focus of subtle diminished signal intensity on CT
examination from the previous day. Findings consistent with acute infarct. Associated mild edema. No associated mass effect.
-Echo- Normal EF 55%
-Aspirin 81mg, Clopidogrel 81 for 21 days
-High intensity statin
-Ct PT/OT
#Essential hypertension
#Dyslipidemia
Atorvastatin 40mg
#ROSEANNA
-Likely hypovolemic, had IVF @maintenance NS @75ml/hr
-BUN/Cr 16/1.0 resolved (25/.1)
Anticipated Discharge: Today
Subjective/Interval History
-
Date of Service: October 29, 2024
Objective Data
-
Labs:
Laboratory Results
10/29/24
06:43
WBC 8.1
Hgb 14.7
Hct 44.6
Plt Count 289
Sodium 140
Potassium 4.1
Chloride 111 H
Carbon Dioxide 23
BUN 16
Creatinine 1.0
Glucose 89
Calcium 10.1
Vital Signs:
Vital Signs
Temp Pulse Resp BP Pulse Ox
97.4 F 67 16 151/84 98
10/29/24 07:32 10/29/24 08:39 10/29/24 07:32 10/29/24 08:39 10/29/24 07:32
I&O
10/28/24 10/29/24 10/30/24
06:59 06:59 06:59
Intake Total 960 / 960
Balance 960 / 960
--- NOTE | 2024-10-29 12:23 | PTOTSP ---
WASTE WATER OPERATOR Evaluations
No signs of oral/pharyngeal dysphagia or aspiration.
Patient presents with signs concerning for at least a mild cognitive linguistic impairment impacting attention, reasoning, delayed recall, and judgement/insight. See below:
MOCA 8.1 score = 24/30 (below normal of 26 or higher) with points lost for visuospatial skills, attention, language/word fluency, abstraction, and delayed recall. Patient had difficulty reading/interpreting a mock medication label from [employer]
Evidenced Based Test.
Recommend:
1. Regular, Thin Liquids
2. Medications as best tolerated
3. Cognitive linguistic evaluation/tx after D/C from the acute care level.
--- NOTE | 2024-10-29 15:22 | CON.MD ---
Consultation - Medical
-
Chief Complaint:�Stroke
�
History of Present Illness:�84-year-old Right handed female with PMH (as below) presented to [facility] on 10/27/2024 with ataxia and right-sided weakness. CT of the head with small focus of diminished attenuation in the posterior limb of
the left internal capsule. CT head and neck with no hemodynamically significant stenosis or occlusion. Not a TNK candidate due to onset of symptoms and low NIH score. Started on aspirin and Plavix for 21 days followed by aspirin monotherapy with
statin. MRI of the brain 10/28 noting a small acute left thalamic infarct. Noted with hypertension likely associated from the CVA and started on amlodipine. Overall doing well and denies any current concerns make except for a little motor control
on the right and some improving numbness and tingling over the right side of the lip and chin as well as the hands and feet. She denies any swallowing difficulties, vision changes. Overall getting better. She would like to get home and continue
doing therapies at home.
�
Past Medical History:�Basal cell carcinoma
Procedure History:�Hip replacement, basal cell carcinoma resection
Family History:�None
�
Social History:�
Functional Level Premorbidly:�Independent with all activities�
Functional Level Currently:�Independent with bed mobility, independent with transfers, close supervision ambulating 100 feet and then 120 feet with rolling walker. Then ambulated 40 feet without device with min assist for contact-guard. Seen by
speech and able to tolerate regular thin liquid diet. Supervision for ADLs.
MOCA 8.1 score = 24/30 (below normal of 26 or higher) with points lost for visuospatial skills, attention, language/word fluency, abstraction, and delayed recall. Patient had difficulty reading/interpreting a mock medication label from [place]
Evidenced Based Test.
�
Tobacco:�Denies�
Alcohol:�Denies�
Drug use:�Denies�
�
Lives with:�Spouse
24-hour assistance available:�Yes
Number of floors:�2
# steps to enter:�2
# steps to second floor:full flight
Potential First floor set up:�home
Driving:�Yes
Occupation:�working, teaches swimming lessons
�
�
Allergies:�
Allergy/AdvReac Type Severity Reaction Status Date / Time
Penicillins Allergy Hives Verified 10/27/24 11:15
Sulfa (Sulfonamide Allergy Hives Verified 10/27/24 11:15
Antibiotics)
�
Review of Systems:�
Constitutional: (x) abNormal _fatigue
Eye: (x) Normal _
Ear/Nose/Throat: (x) Normal _
Respiratory: (x) Normal _
Cardiovascular: (x) Normal _
Gastrointestinal: (x) Normal _denies any constipation or incontinence
Genitourinary: (x) Normal _denies any dysuria or incontinence
Musculoskeletal: (x) Normal _
Integumentary: (x) Normal _
Neurologic: (x) abNormal _stroke as noted in HPI
Psychiatric: (x) Normal _
Endocrine: (x) Normal _
Hematologic/Lymphatic: (x) Normal _
Allergic/Immunologic: (x) Normal _
�
Medications:�
Active Current Visit Medication List
Category Date Time Status
Acetaminophen [Tylenol/Feverall] Med 10/27/24 17:56 Active
650 mg RECTAL Q4HPRN PRN
Acetaminophen [Tylenol] Med 10/27/24 17:56 Active
650 mg PO Q4HPRN PRN
Amlodipine [Norvasc] Med 10/30/24 08:00 Active
10 mg PO DAILY
Aspirin Low Dose EC [Aspir Low (Enteric Coated)] Med 10/27/24 15:00 Active
81 mg PO DAILY
Atorvastatin [Lipitor] Med 10/27/24 18:00 Active
40 mg PO QPM
Clopidogrel Bisulfate [Plavix] Med 10/27/24 15:00 Active
75 mg PO DAILY
Flush (0.9% Sodium Chloride) [Flush (Nss)] Med 10/27/24 18:00 Active
See Dose Instructions IV PER PROTOCOL
Labetalol HCl [Trandate] Med 10/27/24 15:50 Active
10 mg IV Q4HPRN PRN
Vitals:�
Temp Pulse Resp BP Pulse Ox
98.4 F 76 16 159/90 98
10/29/24 11:30 10/29/24 11:30 10/29/24 11:30 10/29/24 12:08 10/29/24 11:30
Height 5 ft 6 in
Actual Weight 76.402 kg
Body Mass Index (BMI) 27.2
�
Physical Exam:�
General Appearance/Observation: Well-developed, well-nourished female in no apparent distress.�
Pain/Comfort Assessment: Denies�
Mood/Affect: Appropriate�
�
Integumentary/Operative Site:�No lesions noted during course of exam
�
Eyes: Conjunctiva/Lids: normal��� Pupils: pupils equal round and reactive to light and Accommodation
Ears/Nose/Throat: oral mucosa moist, throat clear.������������ Lips/Teeth/Gums: normal
Cardiovascular: Heart: regular, no murmur�
Pulses: dorsalis pedis 2+ bilaterally�
Respiratory: Respiratory Effort/Chest Expansion: normal������ Auscultation: Clear to auscultation bilaterally
Gastrointestinal: abdomen not tender, no distension, normal abdominal bowel sounds
Genitourinary: No Giles�
Rectal Exam: Deferred�
Extremities:�Edema: None�Cyanosis: None�Trophic�changes: None
�
Neurology Exam:
Orientation: Alert, Oriented to self, Time, Place�
Memory: Intact for recent medical concerns
Comprehension: Intact
Two step command: Intact
Cranial Nerves:
�� CNII:�Pupillary light reflex: Intact���Visual Field: Intact
�� CN III, IV, : Extraocular muscles: Intact�
�� CN V:�Facial Sensation�at�Forehead: Intact,�Maxilla: Intact,�Mandible: Decreased on the right
�� CN VII:�Facial movement: Symmetric
�� CN VIII:�Hearing: Normal
�� CN IX/X:�Speech & swallow: Normal,�Position of Uvula: Midline
�� CN XI:�Shoulder shrug: Symmetric
�� CN XII:�Tongue protrusion: Midline
Sensory:
�� Light touch: Intact in left upper and lower extremities, slight decreased right arm and leg
�
Reflexes:
�� Biceps: 2+ bilaterally
�� Brachioradialis: 2+ bilaterally
�� Triceps: 2+ bilaterally
�� Patellar: 2+ bilaterally
�� Achilles: 2+ bilaterally
�� Babinski: Down going bilaterally
�� Clonus: None
�� Robert: Negative bilaterally�
Cerebellar: Dysmetria/Ataxia: Slight ataxia right upper extremity, none on the left.
Musculoskeletal:Motor: (Manual muscle scale 0-5)�
Muscle SA EF WE EE FF FA HF KE DF EHL PF
Right� 5 5 5 5 5 5 4 5 5 5 5
Left 5 5 5 5 5 5 4 5 5 5 5
�
Tone: Normal in all extremities�
Range of Motion: Passively within normal limits in all extremities�
�
Lab Results
Laboratory Data
10/29/24 06:43
10/29/24 06:43
PT 12.2 Sec (11.4-14.6) 10/27/24 12:04
INR 0.88 10/27/24 12:04
APTT 23.1 Sec (23.4-35.0) L 10/27/24 12:04
Total Bilirubin 1.0 mg/dl (0.2-1.3) 10/27/24 11:50
AST 25 U/L (14-36) 10/27/24 11:50
ALT 20 U/L (0-35) 10/27/24 11:50
Alkaline Phosphatase 69 U/L (38-126) 10/27/24 11:50
Total Protein 7.1 g/dl (6.3-8.2) 10/27/24 11:50
Albumin 4.3 g/dl (3.5-5.0) 10/27/24 11:50
�
Diagnostic Results:�as per HPI�
�
Assessment
84-year-old right-handed female with PMH (basal cell carcinoma) presented to [facility] on 10/27/2024 with right-sided weakness and ataxia secondary to an acute left thalamic infarct resulting in ADL and amatory dysfunction.
Plan�
PM&R�PT/OT to increase independence with ADLs, improve balance, coordination, endurance, strength, mobility, community reintegration, decreased burden of care on others and family education.�
�
CVA: Secondary prophylaxis with aspirin and Plavix for 21 days followed by aspirin lifelong, statin, and blood pressure control (SBP less than 180 and diastolic less than 100 to participate with therapy for ischemic stroke). Continue to monitor
neurologic status.�
Right ataxia: PT OT. Continue with exercises. Suggest no driving until cleared by therapy to do so.
�
HTN: New onset, taking amlodipine 10 mg daily, monitor closely�
Anemia: Likely multifactorial.� Continue to monitor.�
Bowel: Monitor bowels, medications as necessary
Bladder: Denies any urinary concerns
DVT Prophylaxis: Mechanical, consider chemoprophylaxis
Pulmonary: Incentive spirometry�
Safety: Continue to reinforce assistance with all transfers.�
Code Status:� DNR�per chart
Dispo�(date/plan/equipment needs): Home with family care.� Social history reviewed.�
Functional and Medical Goals:�Modified Independent with ADL�s, ambulation, transfers�
Discharge Destination:�Home�with outpatient physical, occupational, and speech therapy as reviewed. Therapy narrative note suggesting outpatient therapies as well. Has some supervision at home and availability of some assistance from her .
A total of 60 minutes were spent with the patient preparing for the evaluation, obtaining history, performing examination and evaluation, counseling, data review, case management, care coordination, stock order lister, and EMR documentation.
�
Thank you for allowing me to care for your patient. Please contact me with any questions or concerns.
Consultation
-
Date/Time Consultation Performed: 10/29/24
Requesting Provider: Dr. Moisés Preston
Performing Provider: Dr. Danny Doe
Reason for Consultation: Stroke
[2024-10-29] MEDS: DIOVAN 80 MG PO (16:25)
--- NOTE | 2024-10-29 17:22 | W.DCSUMMARY ---
Documented by User: Cyn Aden MD, Resident 10/29/24 17:59
Discharge Summary
Discharge Data
Date of Admission: 10/27/24
Date of Discharge: 10/29/24
-
Pending Results: No
Hospital Course
Discharging Physician : Cyn Aden MD, Moisés Pitts DO
Disposition : Home
Primary care physician : Maribell Castillo
Principal Discharge diagnosis : Acute Cerebrovascular Accident
Essential hypertension
Dyslipidemia
Chronic Discharge diagnosis :
osteopenia, s/p hip replacement, s/p basal cell carcinoma resection
Hospital Course :
84-year-old female RUE weakness, ataxia, right perioral paresthesia that started 4 PM after finishing a workout class. Symptoms persisted since that time, unchanged which prompted her to come to the ED. Denies any headache, dizziness, dysphagia,
chest pain, dyspnea, palpitations.
Past medical history included with osteopenia, s/p hip replacement, s/p basal cell carcinoma resection presenting to the hospital with a complaint of
On presentation at the ED, she was Hypertensive at 198/115 mmHg though otherwise afebrile and hemodynamically stable on room air.
Neuro: Awake, Alert, Oriented, AO x 3, Nonfocal/grossly intact, No Sensory Deficits and Other (Facial muscles are without pathology. Sensation and motor function is equal bilaterally, globally in upper and lower extremities. Limb ataxia not present,
passed finger to nose test)
Labs with BUN 25, creatinine 1.1, calcium 10.9. CT head with small focus of diminished attenuation of the posterior limb of left internal capsule but no signs of ICH or midline shift
She was given IV Labetalol 10mg, ASA, Clopidogrel
She was subsequently admitted and was managed as a cerebrovascular accident as follows;
-Neurology was consulted
She was evaluated by physical, occupational and speech therapy
--IV Labetalol 10mg [id number] for SB > 170, last dose, yesterday at 4pm for bp 172/80
Amlodipin 5mg
DAPT/ Statin
-MRI (10/27/2024)
Findings consistent with acute infarct. Associated mild edema. No associated mass effect.
-Echo- Normal EF 55%
-Aspirin 81mg, Clopidogrel 81 for 21 days
-High intensity statin Atorvastatin 40 mg
-Blood pressure optimization with Amlodipin 10mg, Valsartan 80mg
-With stabilization, she was discharged for follow up on out patient basis
- To do bp chart at home
-Repeat BMP and follow up with results on out patient basis with PCP
Important imaging findings :
Echo 10/28/2024
1. Normal biventricular size and systolic function without regional wall motion abnormality. LVEF 55%.
2. No significant valvular disease.
3. No prior study available for comparison.
Head CT 10/27/2024
Small focus of subtle diminished attenuation involving the posterior limb of left internal capsule. Nonspecific. Possible age indeterminate ischemic change/infarct.
No other significant acute intracranial abnormality noted.
No acute intracranial hemorrhage.
Brain CT 10/27/2024
No imaging findings to suggest hypoperfusion or acute infarct.
These values, maps and summaries are available for review in [facility].
Head/Neck CTA 10/27/2024
Minimal right and mild left calcified and noncalcified plaque of the carotid bulb and proximal ICA, without hemodynamically significant stenosis. No dissection or occlusion.
Mild calcified plaque of the cavernous ICA, bilaterally, without hemodynamically significant stenosis. No occlusion.
No karuk of [place] region aneurysm.
Moderate to high-grade focal stenosis involving the right posterior cerebral artery P2 segment. No other cerebral artery hemodynamically significant stenosis, and no occlusion.
Nonspecific bilateral thyroid nodularity, the largest nodule on the right measuring 1.6 cm. Consider nonemergent follow-up ultrasound.
Degree of stenosis based on NASCET criteria.
Brain MRI
One centimeter acute infarct in the peripheral left thalamus, immediately adjacent to the posterior limb of the internal capsule. Mild edema. No associated mass effect.
Discharge Plan
-
Patient Disposition: Home (Routine Discharge)
Discharge Diagnosis/Procedures: Acute cerebrovascular accident
Essential hypertension
Dyslipidemia
Condition: Fair
Diet: No restrictions
Activity: With Walker
Driving Restrictions: Not until seen by your Dr
Bathing Restrictions: None
Blood Work: Repeat bmp in a week with family doctor
Other Services: PT and OT
Instructions: Generalized Weakness (DC), BLOOD PRESSURE
Referrals:
Maribell Castillo, DO [Family Provider, Family Practice] - in less than 1 week
Referral Note: Review bp log and repeat bmp
Additional Discharge Medication Instructions: Take Amlodipine 10mg tablet once daily by mouth
Take Aspirin 81mg tablet once daily by mouth
Take Valsartan 80mg tablet once daily by mouth
Take Clopidogrel 75mg once daily by mouth and stop after 18 days
Take Atorvastatin 40mg tablet once daily at night
Do daily Blood pressure logs and bring to Your primary care provider for evaluation
Get blood work (basic metabolic panel) done to be reviewed with your primary care provider
Please follow up with the your family doctor to review blood pressure logs and evaluate if you should continue both blood pressure meds or need any dose adjustment for assisted.
Prescriptions:
New
atorvastatin 40 mg Tablet
40 mg PO QPM Qty: 30 0RF
valsartan 80 mg Tablet
80 mg PO DAILY Qty: 30 0RF
clopidogrel 75 mg Tablet
75 mg PO DAILY Qty: 18 0RF
aspirin 81 mg Tablet,Delayed Release (Dr/Ec)
81 mg PO DAILY Qty: 30 0RF
amlodipine 10 mg Tablet
10 mg PO DAILY Qty: 30 0RF
Continued
latanoprost 0.005 % Drops
1 drp BOTH EYES HS
garlic 100 mg Tablet
100 mg PO DAILY
therapeutic multivitamin Tablet
1 tab PO DAILY
dorzolamide-timolol 22.3-6.8 mg/mL drops
1 drp BOTH EYES BID
alpha lipoic acid 100 mg Capsule
100 mg PO DAILY
magnesium glycinate 100 mg Tablet
100 mg PO BID
mloulcowa-pyztcnvm-vgcocyca-AA 80-400-40 mg Capsule
1 cap PO DAILY
coQ10 (ubiquinol) 100 mg Capsule
100 mg PO DAILY
Hair, Skin and Nails (biotin) 10,000 mcg Tablet,Chewable
10,000 mcg PO DAILY
Boswellia amy extract 307 mg Tablet
307 mg PO BID
Lutein Plus With Zeaxanthin 1,500 mcg-60 mg -20 mg-15 mg Tablet
1 tab PO DAILY
Curcumin Capsules
2 cap PO BID
Discharge Orders:
Discharge Patient (As Directed); Ordered 10/29/24
Ordered By: Cyn Aden
Discharge Date and Time
Discharge Date/Time: 10/29/24 19:17
Print Language: BELARUSIAN

Documented by User: Moisés Pitts DO 10/31/24 09:46
Discharge Summary
Discharge Data
Date of Admission: 10/27/24
Date of Discharge: 10/29/24
Total time spent discharging patient (in min): 35
Hospital Course
Discharging Physician : Cyn Aden MD, Moisés Pitts DO
Disposition : Home
Primary care physician : Maribell Castillo
Principal Discharge diagnosis : Acute Cerebrovascular Accident
Essential hypertension
Dyslipidemia
Chronic Discharge diagnosis :
osteopenia, s/p hip replacement, s/p basal cell carcinoma resection
Hospital Course :
84-year-old female RUE weakness, ataxia, right perioral paresthesia that started 4 PM after finishing a workout class. Symptoms persisted since that time, unchanged which prompted her to come to the ED. Denies any headache, dizziness, dysphagia,
chest pain, dyspnea, palpitations. Past medical history included with osteopenia, s/p hip replacement, s/p basal cell carcinoma resection presenting to the hospital with a complaint of
On presentation at the ED, she was Hypertensive at 198/115 mmHg though otherwise afebrile and hemodynamically stable on room air.
Neuro: Awake, Alert, Oriented, AO x 3, Nonfocal/grossly intact, No Sensory Deficits and Other (Facial muscles are without pathology. Sensation and motor function is equal bilaterally, globally in upper and lower extremities. Limb ataxia not present,
passed finger to nose test)
Labs with BUN 25, creatinine 1.1, calcium 10.9. CT head with small focus of diminished attenuation of the posterior limb of left internal capsule but no signs of ICH or midline shift
She was given IV Labetalol 10mg, ASA, Clopidogrel
She was subsequently admitted and was managed as a cerebrovascular accident as follows;
-Neurology was consulted, She was evaluated by physical, occupational and speech therapy
-IV Labetalol 10mg [id number] for SB > 170, last dose, yesterday at 4pm for bp 172/80
-Amlodipine 10, Valsartan 80
-DAPT/ Statin, stop plavix after 21 days
-MRI (10/27/2024) Findings consistent with acute infarct. Associated mild edema. No associated mass effect.
-Echo- Normal EF 55%
-Aspirin 81mg, Clopidogrel 81 for 21 days
-With stabilization, she was discharged for follow up on out patient basis
-To do bp chart at home
-Repeat BMP and follow up with results on out patient basis with PCP
Important imaging findings :
Echo 10/28/2024
1. Normal biventricular size and systolic function without regional wall motion abnormality. LVEF 55%.
2. No significant valvular disease.
3. No prior study available for comparison.
Head CT 10/27/2024
Small focus of subtle diminished attenuation involving the posterior limb of left internal capsule. Nonspecific. Possible age indeterminate ischemic change/infarct.
No other significant acute intracranial abnormality noted.
No acute intracranial hemorrhage.
Brain CT 10/27/2024
No imaging findings to suggest hypoperfusion or acute infarct.
These values, maps and summaries are available for review in [facility].
Head/Neck CTA 10/27/2024
Minimal right and mild left calcified and noncalcified plaque of the carotid bulb and proximal ICA, without hemodynamically significant stenosis. No dissection or occlusion.
Mild calcified plaque of the cavernous ICA, bilaterally, without hemodynamically significant stenosis. No occlusion.
No karuk of [place] region aneurysm.
Moderate to high-grade focal stenosis involving the right posterior cerebral artery P2 segment. No other cerebral artery hemodynamically significant stenosis, and no occlusion.
Nonspecific bilateral thyroid nodularity, the largest nodule on the right measuring 1.6 cm. Consider nonemergent follow-up ultrasound.
Degree of stenosis based on NASCET criteria.
Brain MRI
One centimeter acute infarct in the peripheral left thalamus, immediately adjacent to the posterior limb of the internal capsule. Mild edema. No associated mass effect.
Discharge Plan
-
Patient Disposition: Home (Routine Discharge)
Discharge Diagnosis/Procedures: Acute cerebrovascular accident
Essential hypertension
Dyslipidemia
Condition: Fair
Diet: No restrictions
Activity: With Walker
Driving Restrictions: Not until seen by your Dr
Bathing Restrictions: None
Blood Work: Repeat bmp in a week with family doctor
Other Services: PT and OT
Instructions: Generalized Weakness (DC), BLOOD PRESSURE
Referrals:
Maribell Castillo DO [Family Provider, Family Practice] - in less than 1 week
Referral Note: Review bp log and repeat bmp
Additional Discharge Medication Instructions: Take Amlodipine 10mg tablet once daily by mouth
Take Aspirin 81mg tablet once daily by mouth
Take Valsartan 80mg tablet once daily by mouth
Take Clopidogrel 75mg once daily by mouth and stop after 18 days
Take Atorvastatin 40mg tablet once daily at night
Do daily Blood pressure logs and bring to Your primary care provider for evaluation
Get blood work (basic metabolic panel) done to be reviewed with your primary care provider
Please follow up with the your family doctor to review blood pressure logs and evaluate if you should continue both blood pressure meds or need any dose adjustment for assisted.
Prescriptions:
New
atorvastatin 40 mg Tablet
40 mg PO QPM Qty: 30 0RF
valsartan 80 mg Tablet
80 mg PO DAILY Qty: 30 0RF
clopidogrel 75 mg Tablet
75 mg PO DAILY Qty: 18 0RF
aspirin 81 mg Tablet,Delayed Release (Dr/Ec)
81 mg PO DAILY Qty: 30 0RF
amlodipine 10 mg Tablet
10 mg PO DAILY Qty: 30 0RF
Continued
latanoprost 0.005 % Drops
1 drp BOTH EYES HS
garlic 100 mg Tablet
100 mg PO DAILY
therapeutic multivitamin Tablet
1 tab PO DAILY
dorzolamide-timolol 22.3-6.8 mg/mL drops
1 drp BOTH EYES BID
alpha lipoic acid 100 mg Capsule
100 mg PO DAILY
magnesium glycinate 100 mg Tablet
100 mg PO BID
xqcxpevhe-jpmrjmej-gbvgvyab-AA 80-400-40 mg Capsule
1 cap PO DAILY
coQ10 (ubiquinol) 100 mg Capsule
100 mg PO DAILY
Hair, Skin and Nails (biotin) 10,000 mcg Tablet,Chewable
10,000 mcg PO DAILY
Boswellia amy extract 307 mg Tablet
307 mg PO BID
Lutein Plus With Zeaxanthin 1,500 mcg-60 mg -20 mg-15 mg Tablet
1 tab PO DAILY
Curcumin Capsules
2 cap PO BID
Discharge Orders:
Discharge Patient (As Directed); Ordered 10/29/24
Ordered By: Cyn Aden
Discharge Date and Time
Discharge Date/Time: 10/29/24 19:17
Print Language: BELARUSIAN
== END 2024-10-29 19:17 | disposition home or self-care (01) | DRG 64 ==
LOC: 4 EAST ACU 15:35
PROVIDERS: Registered Nurse; ADMITTING PHYSICIAN Internal Medicine; CONSULT PHYSICIAN Physical Medicine & Rehabilitation; CONSULT PHYSICIAN Psychiatry & Neurology Neurology; EMERGENCY PHYSICIAN Emergency Medicine; FAMILY PHYSICIAN Family Medicine
DX: I63.9 Cerebral infarction, unspecified (principal); G93.6 Cerebral edema; G81.91 Hemiplegia, unspecified affecting right dominant side; I67.4 Hypertensive encephalopathy; N17.9 Acute kidney failure, unspecified; R26.0 Ataxic gait; I66.21 Occlusion and stenosis of right posterior cerebral artery; M85.80 Other specified disorders of bone density and structure, unspecified site; I65.22 Occlusion and stenosis of left carotid artery; E04.2 Nontoxic multinodular goiter; R29.810 Facial weakness; E83.52 Hypercalcemia; I10 Essential (primary) hypertension; E78.5 Hyperlipidemia, unspecified; E86.1 Hypovolemia; D64.9 Anemia, unspecified; Z66 Do not resuscitate; Z96.649 Presence of unspecified artificial hip joint; Z88.0 Allergy status to penicillin; Z88.2 Allergy status to sulfonamides; Z85.828 Personal history of other malignant neoplasm of skin
CPT/HCPCS: 0042T; 70450; 70496; 70498; 70551; 80048; 80053; 80061; 83036; 84443; 85025; 85027; 85610; 85730; 92523; 92610; 93306; 96361; 96374; 97110; 97129; 97163; 97167; 97530; 99285; Q9967